=== PATIENT | male | born 1990 | race Caucasian/White ===

== ENCOUNTER 2018-09-24 23:31 | Emergency (ER) | payer SELFPAY ==
[~2018-09-24] VITALS: Ht 170.2 cm; Wt 63.5 kg
[2018-09-24 23:34] VITALS: BP 134/91
--- NOTE | 2018-09-24 23:37 | NUR ---
PT SENT TO [facility].
--- NOTE | 2018-09-24 23:58 | NUR ---
PT AMBULATED TO BED 5
--- NOTE | 2018-09-25 00:14 | NUR ---
PT PRESENTS TO ED WITH C/O ANXIETY S/P BREAK UP AND LOSS OF JOB. R/R EVEN AND UNLABORED. NO S/S OF DISTRESS NOTED. PT PLACED INTO BED, PENDING MD SELBY. PMH--ANXIETY RX--DENIES
--- NOTE | 2018-09-25 00:38 | NUR ---
EKG PERFORMED AT BEDSIDE
[2018-09-25 01:26] VITALS: BP 130/80
== END 2018-09-25 01:26 | disposition home or self-care (01) ==
LOC: MED 23:31
DX: F41.9 Anxiety disorder, unspecified (principal)
CPT/HCPCS: 93005; 99283

== ENCOUNTER 2020-03-24 03:30 | Emergency (ER) | payer SELFPAY ==
[~2020-03-24] VITALS: Ht 170.2 cm; Wt 69.4 kg
[2020-03-24 03:39] VITALS: BP 157/104
--- NOTE | 2020-03-24 03:42 | NUR ---
X-RAY AT BEDSIDE
--- NOTE | 2020-03-24 04:02 | NUR ---
29 Y/O MALE C/O AROUND 3AM WHILE WATCHING TV PT FELT SUDDEN ONSET OF HEART PALPITATIONS AND PT TOOK BP AT HOME AND STATED IT WAS HIGH AND FELT A POKING PAIN TO THE LEFT CLAVICLE THAT RADIATED TO THE LEFT SCAPULA THAT LASTED FOR 5-10 MINS; AT TIME OF ONSET PT FELT DIZZY AND LIGHTHEADED ; CURRENTLY PT IS NOT HAVING ANY PAIN AND FEELS FINE; DENIES N/V/D; SKIN IS PINK/WARM/DRY; AAOX4 WITH EVEN AND STEADY GAIT; HR EVEN AND REGULAR; PT DENIES ANY FEVER, SOB, OR COUGH AT THIS TIME; PATIENT STATES PAIN OF 0/10 AT THIS TIME; VSS; PATIENT POSITIONED FOR COMFORT; HOB ELEVATED; BEDRAILS UP X2; BED DOWN AND LOCKED. ER MD MADE AWARE OF PT STATUS. PMH: PT DENIES NKA
[2020-03-24 04:44] VITALS: BP 157/104
--- NOTE | 2020-03-24 04:44 | NUR ---
Patient discharged with v/s stable. Written and verbal after care instructions given and explained. Patient verbalized understanding. Ambulatory with steady gait. All questions addressed prior to discharge. Advised to follow up with PMD.
== END 2020-03-24 04:44 | disposition home or self-care (01) ==
LOC: MED 03:30
DX: F41.9 Anxiety disorder, unspecified (principal); R03.0 Elevated blood-pressure reading, without diagnosis of hypertension
CPT/HCPCS: 93005; 99283

== ENCOUNTER 2020-06-14 02:58 | Emergency (ER) | payer OTHER ==
[~2020-06-14] VITALS: Ht 170.2 cm; Wt 68.0 kg
[2020-06-14 03:08] VITALS: BP 162/98
--- NOTE | 2020-06-14 03:10 | NUR ---
To ED bed 06, w/c assist.
--- NOTE | 2020-06-14 03:14 | NUR ---
ERMD AT BEDSIDE WITH PT.
--- NOTE | 2020-06-14 03:16 | NUR ---
30 y/o male c/o right ankle pain. states at 2100 last night, missed a step of stairs and twisted ankle. slight swelling noted on lateral side of right ankle. pt states 6/10 sharp pain. pain upon movement. pmhx: denies nkda
[2020-06-14] MEDS ORDERED: IBUPROFEN 600 MG TAB PO ONE (03:20)
--- NOTE | 2020-06-14 03:32 | NUR ---
WRAP PT'S RIGHT ANKLE WITH 3" SKY WRAP, CHECKED PMSC'S BEFORE AND AFTER PLACMENT WITHOUT INCIDENT.
--- NOTE | 2020-06-14 03:35 | NUR ---
XRAY AT BEDSIDE
[2020-06-14 04:08] VITALS: BP 162/98
--- NOTE | 2020-06-14 04:08 | NUR ---
Patient discharged with v/s stable. Written and verbal after care instructions given and explained. Patient alert, oriented and verbalized understanding of instructions. Wheel Chair Assisted with to car. All questions addressed prior to discharge. ID band removed. Patient advised to follow up with PMD. Rx of MOTRIN given. Patient educated on indication of medication including possible reaction and side effects. Opportunity to ask questions provided and answered.
== END 2020-06-14 04:08 | disposition home or self-care (01) ==
LOC: MED 02:58
DX: S93.401A Sprain of unspecified ligament of right ankle, initial encounter (principal); W10.9XXA Fall (on) (from) unspecified stairs and steps, initial encounter; Y93.89 Activity, other specified; Y92.89 Other specified places as the place of occurrence of the external cause; Y99.8 Other external cause status
CPT/HCPCS: 73610; 99283; Q0092

== ENCOUNTER 2020-10-17 10:51 | Emergency (ER) | payer OTHER ==
[~2020-10-17] VITALS: Ht 172.7 cm; Wt 70.8 kg
[2020-10-17 10:57] VITALS: BP 135/96
--- NOTE | 2020-10-17 10:57 | NUR ---
PT AMBULATED TO BED 11.
--- NOTE | 2020-10-17 11:00 | NUR ---
30/M presents to ED with complains of dizziness on and off. Pt denies any N/V/D. Denies fever or chills. Patient denies any syncopal episodes. Denies pain. Denies medical hx.
--- NOTE | 2020-10-17 11:42 | NUR ---
Dr. Fish at pt bedside.
[2020-10-17 11:59] VITALS: BP 135/96
== END 2020-10-17 11:59 | disposition home or self-care (01) ==
LOC: MED 10:51
DX: R42 Dizziness and giddiness (principal); R51.9 Headache, unspecified; R07.89 Other chest pain
CPT/HCPCS: 99281

== ENCOUNTER 2021-09-16 04:07 | Emergency (ER) | payer OTHER ==
[~2021-09-16] VITALS: Ht 172.7 cm; Wt 68.0 kg
[2021-09-16 04:14] VITALS: BP 145/91
--- NOTE | 2021-09-16 04:20 | NUR ---
EKG DONE IN TRIAGE THEN TO LOBBY FOLLOWING
--- NOTE | 2021-09-16 05:35 | NUR ---
d/c with VSS. d/c education given. opportunity to ask questions given and answered. no rx given.
== END 2021-09-16 05:35 | disposition home or self-care (01) ==
LOC: MED 04:07
DX: F41.9 Anxiety disorder, unspecified (principal)
CPT/HCPCS: 93005; 99283